=== PATIENT | male | born 1965 | race Caucasian/White ===

== ENCOUNTER 2016-08-16 06:45 | Day surgery (SDC) | payer BC ==
[~2016-08-16 06:45] MED LIST: RINGERS SOLUTION,LACTATED 1,000 ML IV PRN; ceFAZolin SODIUM 1 GM VIAL IV PRN
--- OUTSIDE RECORDS SUMMARY | 2016-08-16 06:49 | XMS REPORT | Continuity of Care Document ---
:1965 Author Organization [facility] ([facility]) Address [address] [place] [address] Phone [phone] Care Team Providers Name Role Phone Unavailable Primary Care Provider Unavailable Source Comments This disclosure is being made pursuant to the Care Everywhere program, applicable federal and state laws, and may not contain all informaitonavailable regarding this patient.[facility] ([facility]) Active Allergies and Adverse Reactions Not on File Current Medications Not on file Active Problems Not on file Social History Tobacco Use Types Packs/Day Years Used Date Never Assessed Plan of Care Health Maintenance Due Date Last Done Comments Hepatitis B Vaccine (1 of 3 - Primary Series) 1965 Tdap Vaccine 09/05/1978 Lipid Disorder Screening 09/05/1985 MMR Vaccine 09/05/1985 Td Vaccine 09/05/1985 Influenza Vaccine: Seasonal (#1) 12/04/2015 Results from Last 3 Months Not on file
[2016-08-16] MEDS ORDERED: RINGERS SOLUTION,LACTATED 1,000 ML IV ONE ×2 (07:30→07:35)
[2016-08-16] MEDS ORDERED: BUPIVACAINE HCL 50 ML VIAL IJ ONE ×2 (07:55)
[2016-08-16] MEDS ORDERED: RINGERS SOLUTION,LACTATED 1,000 ML IV PRN (09:26)
[2016-08-16] MEDS ORDERED: ACETAMINOPHEN 500 MG TABLET PO PRN (09:27)
--- NOTE | 2016-08-16 09:28 | OR ---
Operative Report - Dictated Report Narrative: Date: 08/16/2016 Physician: Jamison Larios M.D. Field Care Coordinator: Surinder Leal PA-C Preoperative diagnosis: Right index and long Trigger finger Postoperative diagnosis: Right index and long Trigger finger Procedure: Right index and long finger A1 marlon release Anesthesia: MAC Plus local Complications: None Estimated blood loss: Minimal Tourniquet time: 12 Minutes with forearm esmarch band Specimens: None Retained implants: None Drains: None Indications: Mr. Blackmon Is a 50 year-old male who has been followed in my clinic with complaints of trigger fingers. Physical exam as demonstrated triggering of the finger. Conservative measures have failed including but not limited to passage of time, activity modification, medications, and injections. The risks, benefits, and alternatives were discussed in clinic. The risks being bleeding, infection, nerve, tendon, blood vessel injury, persistent pain, wound competitions, need for additional procedures, and persistent symptoms. Consent was obtained in the clinic. Procedure: After marking the correct extremity in the preoperative holding area, a timeout was performed in the operating room. IV antibiotics consisting of Ancef were administered prior to the procedure. A forearm esmarch tourniquet was applied to the operative upper arm. The arm was exsanguinated and esmarch band was applied 0.5% Marcaine without epinephrine was infused into the projected incision site at the palmar flexion crease over the metacarpal phalangeal joint in line with the digit. Using loupe magnification, a transverse incision in the appropriate palmar flexion crease in line with the digits. Blunt dissection was carried down through the subcutaneous tissues using bipolar cautery for hemostasis. Care was taken to protect the digital nerves. Staying midline along the flexor tendon, the A1 marlon was identified. A uyen was made in the proximal edge of the A1 marlon and tenotomies were utilized in order to completely transect the A1 marlon. Care was to stay midline and avoid transection of the A2 marlon. Soft tissues overlying the flexor tendon proximal to the A1 marlon were also released ensuring that there were no other compressive structures contributing to the triggering. The fingers were placed through range of motion and demonstrated no additional catching. The tendons were visualized and mobilized out of the wound, and did not demonstrate any gross pathology or masses that required debridement. The tendons were noted to be intact. Once was felt that we had decompressed the flexor tendons as they passed under the A1 marlon, the tourniquet was removed. Hemostasis was obtained with pressure and bipolar cautery. There was good return of color and capillary refill to the digit. Additional half percent Marcaine without epinephrine was infused into the skin edges. The wounds were thoroughly irrigated. The skin was closed with interrupted 4-0 nylon. Sterile dressings consisting of Xeroform, 4 x 4, and Gabino were applied. All sponge, needle, blade, and instrument counts were correct prior to closing the wounds. The patient was awoken and transferred to the postanesthesia care unit in stable condition.
[2016-08-16 10:20] VITALS: BP 123/84
== END 2016-08-16 06:46 | disposition home or self-care (01) ==
LOC: AMB 06:45
PROVIDERS: ATTEND Orthopaedic Surgery
PROC: 0LN70ZZ Release Right Hand Tendon, Open Approach (ICD-10-PCS; 2016-08-16)
PROC: 0LN70ZZ Release Right Hand Tendon, Open Approach (ICD-10-PCS; principal; 2016-08-16 08:00)
DX: M65.321 Trigger finger, right index finger (principal); M65.331 Trigger finger, right middle finger; Z68.34 Body mass index [BMI] 34.0-34.9, adult